=== PATIENT | male | born 1935 | race Caucasian/White ===

== ENCOUNTER → 2021-11-20 06:11 | Day surgery (SDC) | payer OTHER, SELFPAY ==
[2021-11-20 08:01] LABS: Covid-19 RAPID by NAA Negative (Negative)
[2021-11-20 08:15] LABS: Glucose - Point of Care 113 mg/dl (65-99)
== END | disposition home or self-care (01) ==
LOC: GI 06:11
PROVIDERS: ATTENDING PHYSICIAN Specialist
DX: D12.4 Benign neoplasm of descending colon (principal); K57.30 Diverticulosis of large intestine without perforation or abscess without bleeding; R12 Heartburn; K22.70 Barrett's esophagus without dysplasia; K29.50 Unspecified chronic gastritis without bleeding; K31.89 Other diseases of stomach and duodenum; Z86.010 Personal history of colon polyps; Z87.19 Personal history of other diseases of the digestive system
CPT/HCPCS: 45385; 43239; 88305; 82962; 87635; 88342; U0005

== ENCOUNTER → 2023-11-30 10:29 | Outpatient (REF) | payer OTHER, SELFPAY | LOC: RAD 10:29 | PROVIDERS: ATTENDING PHYSICIAN Family Medicine | DX: M70.61 Trochanteric bursitis, right hip (principal) | CPT/HCPCS: 73502 ==

== ENCOUNTER 2024-05-12 09:56 | Outpatient (RCR) | payer OTHER, SELFPAY | END 2024-05-12 23:59 | disposition home or self-care (01) | LOC: RPT 09:56 | PROVIDERS: ATTENDING PHYSICIAN Family Medicine | DX: R26.89 Other abnormalities of gait and mobility (principal); R26.81 Unsteadiness on feet; Z73.6 Limitation of activities due to disability | CPT/HCPCS: 97110; 97112; 97162; 97530 ==

== ENCOUNTER 2024-06-09 09:55 | Outpatient (RCR) | payer OTHER, SELFPAY | END 2024-06-09 23:59 | disposition home or self-care (01) | LOC: RPT 09:55 | PROVIDERS: ATTENDING PHYSICIAN Family Medicine | DX: R26.89 Other abnormalities of gait and mobility (principal); R26.81 Unsteadiness on feet; Z73.6 Limitation of activities due to disability | CPT/HCPCS: 97110; 97112; 97530 ==

== ENCOUNTER 2024-07-07 09:59 | Outpatient (RCR) | payer OTHER, SELFPAY | END 2024-07-07 11:08 | disposition home or self-care (01) | LOC: RPT 09:59 | PROVIDERS: ATTENDING PHYSICIAN Family Medicine | DX: R26.89 Other abnormalities of gait and mobility (principal); R26.81 Unsteadiness on feet; Z73.6 Limitation of activities due to disability | CPT/HCPCS: 97110; 97112; 97530 ==

== ENCOUNTER 2024-12-22 10:48 | Emergency (ER) | payer OTHER, SELFPAY ==
[2024-12-22 10:59] VITALS: BP 149/78
[2024-12-22 12:14] VITALS: BMI 25.7
[2024-12-22 12:20] VITALS: BP 136/90
--- NOTE | 2024-12-22 13:38 | EDRN ---
Pt ambulated w/ no assist to BR w/ cane at this time.
[2024-12-22 13:48] VITALS: BP 157/87
[2024-12-22 14:00] VITALS: BP 147/81
--- NOTE | 2024-12-22 14:55 | EDRN ---
Buck DENNIS in room w/ pt at this time.
--- NOTE | 2024-12-22 15:02 | ED.GENMED ---
History of Present Illness
General
Chief Complaint: Fall
Source: patient and family
Exam Limitations: none
Time Seen by Provider: 12/22/24 11:59
Nursing documentation reviewed up to this point in time: agreed with
History of Present Illness
History of Present Illness:
89-year-old male past medical history of CAD hypertension presenting to the emergency department today with concerns of trip and fall yesterday. He claims it was mechanical he got tripped up did not lose consciousness hit his left forehead and eye
region felt okay at the time has had worsening left shoulder and left wrist pain today. Denies chest pain shortness of breath numbness weakness.
Review of Systems
Review of Systems
Allergies reviewed?: Yes
All Other Systems: ROS reviewed and negative except as documented in HPI and ROS
Phy Exam
Physical Exam
Physical Exam:
GENERAL: Alert , in no apparent distress
EYE: pupils equal and reactive
NECK: Supple, no significant adenopathy.
ENT: Swelling ecchymosis surrounding the left eye. o/p clr, mmm.
CARDIAC: Regular rate and rhythm .
LUNGS: Clear breath sounds bilaterally, no acute respiratory distress, no wheezes/rales/rhonchi
ABDOMEN: Soft, without focal tenderness, no r/g, no cvat
NEUROLOGICAL: Alert and oriented, no focal neuro deficits
SKIN: Warm and dry, skin intact.
MUSCULOSKELETAL: No edema, well perfused.
PSYCH: Normal and appropriate interaction.
Course
Orders/Labs/Results
Orders:
Orders
12/22/24 12:05
CT Facial Bones W/o Iv Contras Urgent
Comment:
Reason For Exam: fall hit face
CT Head W/o Iv Contrast Urgent
Comment:
Reason For Exam: fall haley head
CR Shoulder, Trauma - Left Urgent
Comment:
Reason For Exam: left shoulder pain after fall
CR Wrist - Left Min 3 Views Urgent
Comment:
Reason For Exam: pain after fall
Vital Signs
Initial and Last Documented VS:
Initial Vital Signs
Temp Pulse Resp BP Pulse Ox
97.4 F 96 16 149/78 98
12/22/24 10:59 12/22/24 10:59 12/22/24 10:59 12/22/24 10:59 12/22/24 10:59
Last Documented Vital Signs
Temp Pulse Resp BP Pulse Ox
97.4 F 78 16 147/81 98
12/22/24 10:59 12/22/24 14:00 12/22/24 14:00 12/22/24 14:00 12/22/24 14:00
MDM/Problems Addressed
MDM/Problems Addressed:
89-year-old male presenting to the emergency department after ground-level fall yesterday. Hit his left thigh region and also his left arm. Initially felt okay yesterday tried to sleep it off overnight this morning with ongoing pain. Today with
symptoms mainly discomfort to the left shoulder and the left wrist. X-ray without signs of acute abnormalities. Head CT and facial CT without emergent findings. Patient with soft tissue injuries. Otherwise stable for outpatient management return
precautions given.
*Critical Care Note
Total Time (30-74mins, 75-104mins- exclusive of procedures): Not Applicable
ED Attending Note
-
Portions of this chart may have been created with voice recognition software.� Occasional wrong word or��sound alike� substitutions may have occurred due to the inherent limitations of voice recognition software.
Discharge Plan
Departure
Patient Disposition: Home (Routine Discharge)
Date of Disposition: 12/22/24
Time of Disposition: 15:09
Patient with high blood pressure during this ER visit?: No
Condition: Good
Covid-19: Not Applicable
Discharge Problem:
Fall, Facial bruising, Shoulder sprain, Left wrist sprain
Instructions: Concussion, Adult (DC), Preventing falls in adults
Prescriptions:
No Action
atorvastatin 40 MG tablet
40 mg PO QPM
aspirin [Adult Low Dose Aspirin] 81 MG tablet,delayed release (DR/EC)
81 mg PO DAILY
pantoprazole 40 MG tablet,delayed release (DR/EC)
40 mg PO DAILY
hydrochlorothiazide 25 MG tablet
25 mg PO DAILY
losartan 100 MG tablet
100 mg PO QPM
Caltrate 600-D Plus Minerals 1 EACH tablet,chewable
1 ea PO DAILY
nitroglycerin 0.4 MG tablet, sublingual
0.4 mg sublingual [id number] PRN (Reason: chest pain) Qty: 25 4RF
famotidine [Pepcid AC] 10 mg Tablet
10 mg PO DAILY PRN (Reason: reflux)
acetaminophen 500 mg Tablet
500 mg PO Q6H PRN (Reason: mild pain/fever)
metoprolol succinate 25 mg tablet extended release 24 hr
25 mg PO DAILY
metformin 500 MG tablet extended release 24 hr
1,000 mg PO BID@0800,1700
folic acid 1 mg Tablet
1 mg PO DAILY Qty: 20 0RF
thiamine HCl (vitamin B1) 100 mg Tablet
100 mg PO BID Qty: 60 0RF
magnesium oxide 500 mg capsule
500 mg PO DAILY Qty: 20 0RF
Referrals:
Luis Starr MD [Family Provider] -
Activity Restrictions/Additional Instructions:
You came to the emergency department today with concerns of a fall. Here no signs of emergent injury. Please rest the next few days. Return for any worsening, new or concerning symptoms.
Interventions
Interventions:
*Risk Screen - Suicide Last Done: 12/22/24 12:14
*General Assessment Last Done: 12/22/24 12:14
*Neglect/Abuse Screening Last Done: 12/22/24 12:14
*ED- Fall Risk Assessment Last Done: 12/22/24 12:14
*ED COVID-19 Vaccine History Last Done: 12/22/24 12:14
ED-Musculoskeletal Assessment Last Done: 12/22/24 12:17
ED- Neurological Assessment Last Done: 12/22/24 12:17
ED-Skin Assessment Last Done: 12/22/24 12:17
Discharge Date and Time
Print Language: INDONESIAN
--- NOTE | 2024-12-22 15:20 | EDRN ---
Pt declined a sling. Pt was advised to ice and elevate 4-6 times a day and elevate lower arm when walking. Pt demonstrated this in room.
== END 2024-12-22 15:25 | disposition home or self-care (01) ==
LOC: EMR 10:48
PROVIDERS: EMERGENCY PHYSICIAN Emergency Medicine; FAMILY PHYSICIAN Family Medicine
DX: S05.12XA Contusion of eyeball and orbital tissues, left eye, initial encounter (principal); S63.502A Unspecified sprain of left wrist, initial encounter; W18.30XA Fall on same level, unspecified, initial encounter; I25.10 Atherosclerotic heart disease of native coronary artery without angina pectoris; I10 Essential (primary) hypertension; M25.512 Pain in left shoulder; M25.532 Pain in left wrist
CPT/HCPCS: 99284; 70450; 70486; 73030; 73110